=== PATIENT | male | born 1990 | race Caucasian/White ===

== ENCOUNTER 2021-07-14 16:25 | Outpatient (REF) | payer BC, SELFPAY ==
[2021-07-14 15:07] LABS: HCT 44.3 % (40.0-50.0); HGB 14.8 g/dL (13.5-17.5); MCH 31.5 pg (27.0-33.0); MCHC 33.4 % (32.0-36.0); MCV 94 fL (80-95); MPV 9.2 fL (8.0-11.0); Platelet Count 314 10^3/uL (130-400); RDW 11.9 % (11.8-14.1); RDW-SD 41.8 fL; WBC 5.19 10^3/uL (4.4-10.8)
[2021-07-14 15:38] LABS: Anion Gap 11.4 mmol/L (3-11); BUN 18 mg/dL (7-18); CO2 24.6 mmol/L (21.0-32.0); CREATININE 0.9 mg/dL (0.70-1.30); Calcium 9.2 mg/dL (8.5-10.1); Calculated LDL 132 mg/dL (<100); Chloride 104 mmol/L (98-107); Cholesterol 221 mg/dL (<200); Glucose 100 mg/dL (74-106); HDL Cholesterol 73 mg/dL (40-60); Potassium 4.3 mmol/L (3.5-5.1); Sodium 140 mmol/L (136-145); Triglyceride 81 mg/dL (<150)
== END 2021-07-14 16:26 | disposition home or self-care (01) ==
LOC: NCHCN 16:25
PROVIDERS: Visit Provider Physician Assistant
DX: Z00.00 Encounter for general adult medical examination without abnormal findings (principal); Z13.220 Encounter for screening for lipoid disorders; Z13.228 Encounter for screening for other metabolic disorders
CPT/HCPCS: 80048; 80061; 85027

== ENCOUNTER 2024-05-11 21:15 | Outpatient (REF) | payer OTHER, SELFPAY ==
[2024-05-12 11:33] LABS: HSV 1 DNA Result Negative (Negative); HSV 2 DNA Result Negative (Negative); Varicella Zoster DNA Result Negative (Negative)
== END 2024-05-11 21:16 | disposition home or self-care (01) ==
LOC: LBN 21:15
PROVIDERS: Visit Provider Nurse Practitioner Family
DX: L28.2 Other prurigo (principal)
CPT/HCPCS: 87529; 87798